=== PATIENT | female | born 1980 | race Caucasian/White ===

== ENCOUNTER → 2017-06-20 | Outpatient (CLI) | payer BC ==
[2017-06-20 11:14] LABS: BASOPHILS % (AUTO) 0 % (0-10); EOSINOPHILS # (AUTO) 0.1 10^3/uL (0.0-0.3); EOSINOPHILS % (AUTO) 1 % (0-10); HEMATOCRIT 38 % (35-52); HEMOGLOBIN 12.7 G/DL (11.5-16.0); LYMPHOCYTES # (AUTO) 1.4 X 10^3 (1.0-4.0); LYMPHOCYTES % (AUTO) 19 % (12-44); MEAN CORPUSCULAR HEMOGLOBIN 25 PG (25-34); MEAN CORPUSCULAR HGB CONC 34 G/DL (32-36); MEAN CORPUSCULAR VOLUME 75 FL (80-99); MEAN PLATELET VOLUME 10.1 FL (7.4-10.4); MONOCYTES # (AUTO) 0.4 X 10^3 (0.0-1.0); MONOCYTES % (AUTO) 5 % (0-12); NEUTROPHILS # (AUTO) 5.4 X 10^3 (1.8-7.8); NEUTROPHILS % (AUTO) 75 % (42-75); PLATELET COUNT 316 10^3/uL (130-400); RED BLOOD COUNT 5.08 10^6/uL (4.35-5.85); RED CELL DISTRIBUTION WIDTH 16.7 % (10.0-14.5); WHITE BLOOD COUNT 7.3 10^3/uL (4.3-11.0)
[2017-06-20 11:35] LABS: ALANINE AMINOTRANSFERASE 24 U/L (0-55); ALBUMIN 4.4 GM/DL (3.2-4.5); ALKALINE PHOSPHATASE 67 U/L (40-136); BILIRUBIN,TOTAL 0.5 MG/DL (0.1-1.0); BUN/CREATININE RATIO 13; CALCIUM 9.5 MG/DL (8.5-10.1); CARBON DIOXIDE 26 MMOL/L (21-32); CHLORIDE 106 MMOL/L (98-107); CHOLESTEROL 235 MG/DL (< 200); CREATININE SERUM 0.95 MG/DL (0.60-1.30); GFR ESTIMATED > 60; GLUCOSE 94 MG/DL (70-105); HDL CHOLESTEROL 67 MG/DL (40-60); POTASSIUM 3.8 MMOL/L (3.6-5.0); SODIUM 139 MMOL/L (135-145); TOTAL PROTEIN 8.2 GM/DL (6.4-8.2); TRIGLYCERIDES 87 MG/DL (<150); VLDL CHOLESTEROL 17 MG/DL (5-40)
[2017-06-20 11:55] LABS: TSH (THYROID ANALYZER) 4.45 UIU/ML (0.35-4.94)
[2017-06-20 12:00] LABS: ERYTHROCYTE SEDIMENTATION RATE 27 MM/HR (0-20)
--- NOTE | 2017-06-20 16:59 | Diagnostic Imaging Report ---
INDICATION: Right-sided pelvic pain. Pelvic sonography is performed with transabdominal and transvaginal views. The uterus measures 6.2 x 4.0 x 3.5 cm. There appears to be a small nabothian cyst in the cervix. There is no uterine mass. Endometrium measures 4 mm in thickness. The right ovary measured 2.5 x 2.4 x 1.1 cm and appears normal. The left ovary measures 2.4 x 1.4 x 2.1 cm and appears normal. There is color flow to both ovaries. There is no free fluid. IMPRESSION: Essentially unremarkable pelvic sonography. Essentially no change from 01/27/2015. Dictated by: Dictated on workstation # [id number]
== END ==
LOC: RAD 10:24
PROVIDERS: ATTEND Physician Assistant
DX: R10.2 Pelvic and perineal pain (principal); R19.09 Other intra-abdominal and pelvic swelling, mass and lump
CPT/HCPCS: 36415; 76830; 76856; 80053; 80061; 82670; 83001; 83002; 83036; 84146; 84443; 84703; 85025; 85652; 86141

== ENCOUNTER → 2017-07-05 | Outpatient (CLI) | payer BC ==
--- NOTE | 2017-07-05 11:28 | Diagnostic Imaging Report ---
EXAMINATION: Pelvic ultrasound. INDICATION: Right ovary enlargement, pelvic pain. FINDINGS: The recent pelvic ultrasound exam of 06/13/2016 failed to show any sign of an acute pelvic abnormality. In the interval since the prior exam, a 1.1 cm benign-appearing cyst has developed in the left ovary. The left ovary is otherwise unremarkable. There are a few subcentimeter follicles arising from the left ovary and there is good blood flow. There is no sign of torsion of the right ovary either. The right ovary is generally unremarkable. There is no solid pelvic mass or free fluid collection evident. The uterus is nongravid and not enlarged measuring 6.8 x 3.9 x 3.6 cm. The endometrial lining is slightly thickened measuring 8 mm (normal 5 mm or less). This finding is nonspecific. Correlation with the patient's menstrual cycle would be recommended. There is no focal mass involving the uterus to suggest a fibroid. IMPRESSION: In the interval since the prior study, a small benign-appearing cyst has developed on the left ovary. There is no acute pelvic abnormality noted otherwise. Dictated by: Dictated on workstation # [id number]
== END ==
LOC: RAD 10:27
PROVIDERS: ATTEND Obstetrics & Gynecology
DX: N83.201 Unspecified ovarian cyst, right side (principal)
CPT/HCPCS: 76830

== ENCOUNTER → 2019-03-05 | Outpatient (CLI) | payer BC, OTHER ==
--- NOTE | 2019-03-05 10:44 | Diagnostic Imaging Report ---
CLINICAL INDICATION: Patient had a concussion on 02/05/2019 when a volleyball hit her in the face. The patient is having headaches and double vision. EXAM: MRI of the brain was performed without IV contrast. Sequences included axial DWI, ADC map, axial T2, axial FLAIR, axial T1, axial gradient echo, and sagittal T1. COMPARISON: None. FINDINGS: There are two subtle punctate areas of high T2 signal in the basilar right frontal lobe subcortical region, best seen on the axial T2 and FLAIR sequences image 13. The largest punctate area measures 3 mm and they are closely adjacent to each other. There is no associated low gradient echo signal in the region. Otherwise, the remainder of the brain parenchyma is unremarkable. There is no evidence of acute cerebral infarct, intracranial hemorrhage, or gross mass effect. The brain parenchymal volume appears appropriate for patient's age. There is normal valerio/white matter distinction. There is no significant midline shift or herniation. The [place] vascular structures show no gross abnormality as visualized. The pituitary gland, sella, and suprasellar regions are unremarkable as visualized. There is no evidence of hydrocephalus. The basal cisterns are unremarkable. The skull, extracranial soft tissue, and orbits are unremarkable. There is mild mucosal thickening involving the left maxillary sinus. The temporal bones show no significant abnormality. IMPRESSION: 1. There is no evidence of an acute intracranial process. 2. There are two nonspecific punctate areas of high T2 signal in the subcortical basilar right frontal lobe area. There is no MRI evidence of petechial hemorrhage in this area. These two areas are of unknown age/chronicity. If prior MRI imaging is available, then comparison would help better evaluate for chronicity of these findings. 3. Otherwise, the remainder of the brain parenchyma is unremarkable. 4. Mild left maxillary sinus disease. Dictated by: Dictated on workstation # [id number]
== END ==
LOC: RAD 08:17
PROVIDERS: ATTEND Family Medicine
DX: S06.0X0A Concussion without loss of consciousness, initial encounter (principal); J32.0 Chronic maxillary sinusitis; G93.89 Other specified disorders of brain
CPT/HCPCS: 70551